=== PATIENT | male | born 1985 | race American Indian/Alaskan Native ===

== ENCOUNTER 2022-01-24 12:34 | Emergency (ER) | payer SELFPAY ==
--- NOTE | 2022-01-24 16:36 | Emergency Department Report ---
- General Chief complaint: Rectal Pain Stated complaint: PAIN LUMP IN RECTAL AREA Time Seen by Provider: 01/24/22 15:10 Source: patient Mode of arrival: Ambulatory Limitations: No Limitations - History of Present Illness Initial comments: 36-year-old black male with a past medical history of HIV presents to the emergency department for evaluation of rectal pain. He states that he has had pain to his rectal area for over a week, talk to his primary care provider who started him on antibiotics, but he states that he has not had any improvement. He denies fever and states that he has still been able to have a bowel movement and urinate without any difficulty. MD complaint: abscess/boil -: Gradual, days(s) (6-7) Location: genitals Severity scale (0 -10): 10 Quality: aching Consistency: constant Worsens with: movement Associated symptoms: denies other symptoms Treatments Prior to Arrival: antibiotic - Related Data Previous Rx's Medication Instructions Recorded Last Taken Type Acetaminophen/Codeine [Tylenol 1 tab PO Q6H PRN #12 tab 01/24/22 Unknown Rx /Codeine # 3 tab] Clindamycin [Clindamycin CAP] 300 mg PO Q8H 10 Days #30 cap 01/24/22 Unknown Rx Naproxen 500 mg PO BID 7 Days #14 tab 01/24/22 Unknown Rx Allergies Allergy/AdvReac Type Severity Reaction Status Date / Time No Known Allergies Allergy Verified 01/25/22 15:01 Abscess Boil HPI - HPI Chief Complaint: Rectal Pain Stated Complaint: PAIN LUMP IN RECTAL AREA Time Seen by Provider: 01/24/22 15:10 Duration: 1 Week Location: Perianal Severity: Severe History: Yes Pain, Yes Purulent Drainage (States that he has some purulent drainage from his rectal area yesterday), No Fever, No Numbness, No Foreign Body, No Previous History, No Insect Bite Home Medications: Previous Rx's Medication Instructions Recorded Last Taken Type Acetaminophen/Codeine [Tylenol 1 tab PO Q6H PRN #12 tab 01/24/22 Unknown Rx /Codeine # 3 tab] Clindamycin [Clindamycin CAP] 300 mg PO Q8H 10 Days #30 cap 01/24/22 Unknown Rx Naproxen 500 mg PO BID 7 Days #14 tab 01/24/22 Unknown Rx Allergies/Adverse Reactions: Allergies Allergy/AdvReac Type Severity Reaction Status Date / Time No Known Allergies Allergy Verified 01/25/22 15:01 ED Review of Systems ROS: Stated complaint: PAIN LUMP IN RECTAL AREA Other details as noted in HPI Comment: All other systems reviewed and negative Constitutional: denies: chills, fever, malaise, weakness Respiratory: denies: shortness of breath Gastrointestinal: denies: abdominal pain, nausea, vomiting Genitourinary: denies: urgency, dysuria, frequency, hematuria Musculoskeletal: denies: back pain Neurological: denies: headache, weakness ED Past Medical Hx - Past Medical History Hx HIV: Yes - Surgical History Past Surgical History?: No - Social History Smoking Status: Former Smoker Substance Use Type: Alcohol - Medications Home Medications: Home Medications Medication Instructions Recorded Confirmed Last Taken Type Acetaminophen/Codeine [Tylenol 1 tab PO Q6H PRN #12 tab 01/24/22 Unknown Rx /Codeine # 3 tab] Clindamycin [Clindamycin CAP] 300 mg PO Q8H 10 Days #30 cap 01/24/22 Unknown Rx Naproxen 500 mg PO BID 7 Days #14 tab 01/24/22 Unknown Rx ED Physical Exam - General Limitations: No Limitations General appearance: alert, in no apparent distress - Head Head exam: Present: atraumatic, normocephalic - Eye Eye exam: Present: normal appearance. Absent: scleral icterus, conjunctival injection, periorbital swelling, periorbital tenderness - Neck Neck exam: Present: normal inspection, full ROM. Absent: tenderness, lymphadenopathy - Respiratory Respiratory exam: Present: normal lung sounds bilaterally. Absent: respiratory distress, wheezes, rales, rhonchi, stridor, chest wall tenderness - Cardiovascular Cardiovascular Exam: Present: regular rate, normal heart sounds - GI/Abdominal GI/Abdominal exam: Present: soft, normal bowel sounds. Absent: distended, tenderness, guarding, rebound, rigid - Rectal Rectal exam: Present: tenderness. Absent: normal inspection (Abscess directed.. Abscess noted to be tender to any touch, fluctuant, with minimal erythema noted.), hemorrhoids - Extremities Exam Extremities exam: Present: normal inspection, normal capillary refill - Back Exam Back exam: Present: normal inspection. Absent: vertebral tenderness - Neurological Exam Neurological exam: Present: alert, oriented X3 - Psychiatric Psychiatric exam: Present: normal affect, normal mood - Skin Skin exam: Present: warm, dry, intact, normal color ED Course Vital Signs 01/24/22 01/24/22 12:51 16:57 Temperature 98.4 F 98.4 F Pulse Rate 96 H 78 Respiratory 18 20 Rate Blood Pressure 174/105 128/74 [Left] O2 Sat by Pulse 99 97 Oximetry - I & D Perineum Type of Procedure: Simple Blade Size: 11 (Rectal area) I & D Procedure: betadine prep Progress: Anestisized with 6 cc of lidocaine without epi. Patient noted to have copious amounts of purulent drainage from area. Patient tolerated well. ED Medical Decision Making - Medical Decision Making 36-year-old black male with a past medical history of HIV presents to the emergency department for evaluation of rectal pain. He states that he has had pain to his rectal area for over a week, talk to his primary care provider who started him on antibiotics, but he states that he has not had any improvement. He denies fever and states that he has still been able to have a bowel movement and urinate without any difficulty. Patient noted to have rectal abscess. Incision and drainage performed, patient tolerated well. Patient will be discharged home on 10-day course of clindamycin and given strict return precautions if he develops increased pain, fever, or inability to have a bowel movement. He is advised to follow-up with his primary care provider or infectious disease doctor for further evaluation and management. He verbalizes understanding of and agreement with plan of care. Critical care attestation.: If time is entered above; I have spent that time in minutes in the direct care of this critically ill patient, excluding procedure time. ED Disposition Clinical Impression: Abscess, perineum Disposition: 01 HOME / SELF CARE / HOMELESS Is pt being admited?: No Does the pt Need Aspirin: No Condition: Stable Instructions: Skin Abscess, [id number], Anorectal Abscess Additional Instructions: Take medications as prescribed. Follow-up with your primary care provider for further evaluation and management. Follow-up with general surgery for further evaluation. Return to the emergency department as needed. Prescriptions: Clindamycin [Clindamycin CAP] 300 mg PO Q8H 10 Days #30 cap Naproxen 500 mg PO BID 7 Days #14 tab Acetaminophen/Codeine [Tylenol /Codeine # 3 tab] 1 tab PO Q6H PRN #12 tab PRN Reason: Pain , Severe (7-10) Referrals: CARBUCCIA,DONTRELL, MD [Staff Physician] - 3-5 Days MARIO SWEET DO [Staff Physician] - 3-5 Days Time of Disposition: 16:36
[2022-01-24 16:58] VITALS: BP 128/74
== END 2022-01-24 16:57 | disposition home or self-care (01) ==
LOC: ED 12:34
DX: L02.215 Cutaneous abscess of perineum (principal); Z87.891 Personal history of nicotine dependence; Z79.82 Long term (current) use of aspirin; Z79.899 Other long term (current) drug therapy
CPT/HCPCS: 99282

== ENCOUNTER 2022-01-25 14:24 | Inpatient (IN) | payer SELFPAY ==
[2022-01-25] MEDS ORDERED: KETOROLAC 30 MG/1 ML INJ IV ONE (21:35)
[2022-01-25 21:51] LABS: Basophils # (Auto) 0.1 K/mm3 (0.0-0.1); Basophils % (Auto) 0.8 % (0.0-1.8); Eosinophils # (Auto) 0.2 K/mm3 (0.0-0.4); Eosinophils % (Auto) 2.7 % (0.0-4.3); Hematocrit 45.5 % (35.5-45.6); Hemoglobin 15.8 gm/dl (11.8-15.2); Lymphocytes # (Auto) 2.7 K/mm3 (1.2-5.4); Lymphocytes % (Auto) 34.4 % (13.4-35.0); Mean Corpuscular HGB Conc 35 % (32-34); Mean Corpuscular Volume 88 fl (84-94); Monocytes # (Auto) 0.5 K/mm3 (0.0-0.8); Monocytes % (Auto) 6.2 % (0.0-7.3); Platelet Count 198 K/mm3 (140-440); Red Cell Distribution Width 14.1 % (13.2-15.2)
[2022-01-25 22:10] LABS: Alanine Aminotransferase 37 units/L (7-56); Albumin 4.5 g/dL (3.9-5); BUN/Creatinine Ratio 13; Blood Urea Nitrogen 13 mg/dL (9-20); Calcium 8.8 mg/dL (8.4-10.2); Hemolysis Index 35
[2022-01-25 23:43] LABS: Mucus,Urine FEW /HPF
[2022-01-26 00:13] LABS: Bilirubin,Urine Negative (Negative); Blood,Urine Negative (Negative); Color,Urine Straw (Yellow)
--- NOTE | 2022-01-26 03:38 | Cat Scan Report ---
CT abdomen pelvis w con INDICATION / CLINICAL INFORMATION: yanira-rectal abscess 100ml of [id number]. TECHNIQUE: Axial CT images were obtained through the abdomen and pelvis after 100 cc of Omnipaque [address] scans at this location are performed using CT dose reduction for ALARA by means of automated exposure control. COMPARISON: None available. FINDINGS: Initial images were obtained at 10:26 PM, though the inferior perineum was excluded. Subseq uent imaging of the inferior perineum was requested and performed at 11:56 PM. Examination is somewha t limited due to delayed phase of contrast. LOWER CHEST: No significant abnormality LIVER: No significant abnormality GALLBLADDER/BILIARY TREE: No significant abnormality PANCREAS: No significant abnormality SPLEEN: No significant abnormality ADRENALS: No significant abnormality RIGHT KIDNEY / URETER: No significant abnormality LEFT KIDNEY / URETER: No significant abnormality URINARY BLADDER: No significant abnormality REPRODUCTIVE ORGANS: No significant abnormality STOMACH / BOWEL: Small bowel is normal in caliber. The colon is unremarkable. The appendix is normal in caliber. LYMPH NODES: No significant adenopathy. VASCULATURE: No significant abnormality. OTHER: There is mild soft tissue inflammation of the right gluteal fold with mild asymmetric soft tis imani thickening and suggestion of a 1.9 x 1.2 cm area of focal fluid and gas in the right perianal sof t tissues (series 2 image 94). SKELETAL SYSTEM: No acute osseous findings. IMPRESSION: 1. Mild inflammation of the right gluteal fold and right perianal soft tissues with suggestion of 1.9 cm perianal abscess. Signer Name: Robinson Shaffer MD Signed: 01/26/2022 3:34 AM Workstation Name: [id number]
--- NOTE | 2022-01-26 04:19 | Emergency Department Report ---
ED General Adult HPI - General Chief complaint: Skin/Abscess/Foreign Body Stated complaint: INTERNAL ABSCESS Source: patient Mode of arrival: Ambulatory Limitations: No Limitations - History of Present Illness Initial comments: Patient is a 36-year-old -Burmese male with a history of HIV who presents to the ED with complaint of acute onset persistent rectal pain and rig ht gluteal pain due to mild erythematous maculopapular rash for the last 1 week. Patient states that the pain is constant and persistent especially worse with bowel movement. Patient states that he was initially evaluated in this ED about 3 days ago and had I&D procedure performed on the gluteal cleft abscess. Patient states that he has been taking oral antibiotics at home but that in the last 2 days he has not been able to have a bowel movement because of worsening rectal pain. Patient denies dizziness, syncope, fever, chills, nausea and vomiting, fever, chills, dysuria, urinary frequency and urgency, urinary or bowel incontinence and abdominal pain. MD Complaint: Persistent rectal pain due to rectal abscess -: Gradual, week(s) (1) Location: buttocks Radiation: non-radiation Severity scale (0 -10): 10 Quality: aching, sharp Consistency: constant Improves with: none Worsens with: movement, other (bowel movement) Associated Symptoms: denies other symptoms, rash (Swollen, painful perirectal area and right gluteal cleft). denies: confusion, chest pain, cough, diaphoresis, fever/chills, headaches, loss of appetite, malaise, nausea/ vomiting, shortness of breath, syncope, weakness, other Treatments Prior to Arrival: NSAID - Related Data Previous Rx's Medication Instructions Recorded Last Taken Type Acetaminophen/Codeine [Tylenol 1 tab PO Q6H PRN #12 tab 01/24/22 Unknown Rx /Codeine # 3 tab] Clindamycin [Clindamycin CAP] 300 mg PO Q8H 10 Days #30 cap 01/24/22 Unknown Rx Naproxen 500 mg PO BID 7 Days #14 tab 01/24/22 Unknown Rx Allergies Allergy/AdvReac Type Severity Reaction Status Date / Time No Known Allergies Allergy Verified 01/25/22 15:01 ED Review of Systems ROS: Stated complaint: INTERNAL ABSCESS Other details as noted in HPI Constitutional: denies: chills, fever Eyes: denies: eye pain, eye discharge, vision change ENT: denies: ear pain, throat pain Respiratory: denies: cough, shortness of breath, wheezing Cardiovascular: denies: chest pain, palpitations Endocrine: no symptoms reported Gastrointestinal: denies: abdominal pain, nausea, diarrhea Genitourinary: denies: urgency, dysuria Musculoskeletal: denies: back pain, joint swelling, arthralgia Skin: rash (Swollen, painful perirectal rash). denies: lesions, change in color, change in hair/nails, pruritus Neurological: denies: headache, weakness, paresthesias Psychiatric: denies: anxiety, depression Hematological/Lymphatic: denies: easy bleeding, easy bruising ED Past Medical Hx - Past Medical History Previous Medical History?: Yes Hx HIV: Yes - Social History Smoking Status: Former Smoker Substance Use Type: Alcohol - Medications Home Medications: Home Medications Medication Instructions Recorded Confirmed Last Taken Type Acetaminophen/Codeine [Tylenol 1 tab PO Q6H PRN #12 tab 01/24/22 Unknown Rx /Codeine # 3 tab] Clindamycin [Clindamycin CAP] 300 mg PO Q8H 10 Days #30 cap 01/24/22 Unknown Rx Naproxen 500 mg PO BID 7 Days #14 tab 01/24/22 Unknown Rx ED Physical Exam - General Limitations: No Limitations General appearance: alert, in no apparent distress - Head Head exam: Present: atraumatic, normocephalic, normal inspection - Eye Eye exam: Present: normal appearance, PERRL, EOMI Pupils: Present: normal accommodation - ENT ENT exam: Present: normal exam, normal orophraynx, mucous membranes moist, TM's normal bilaterally, normal external ear exam - Neck Neck exam: Present: normal inspection, full ROM - Respiratory Respiratory exam: Present: normal lung sounds bilaterally. Absent: respiratory distress, wheezes, rales, rhonchi, stridor, chest wall tenderness, accessory muscle use, decreased breath sounds, prolonged expiratory - Cardiovascular Cardiovascular Exam: Present: regular rate, normal rhythm, normal heart sounds. Absent: systolic murmur, diastolic murmur, rubs, gallop - GI/Abdominal GI/Abdominal exam: Present: soft, normal bowel sounds. 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 Absent: tenderness - Back Exam Back exam: Present: normal inspection, full ROM. Absent: tenderness, CVA tenderness (R), CVA tenderness (L), muscle spasm, paraspinal tenderness, vertebral tenderness - Neurological Exam Neurological exam: Present: alert, oriented X3, CN II-XII intact, normal gait, reflexes normal - Psychiatric Psychiatric exam: Present: normal affect, normal mood - Skin Skin exam: Present: warm, dry, intact, normal color, rash (Swelling, mild erythematous, tender, fluctuant perirectal mass), erythema ED Course Vital Signs 01/25/22 01/25/22 14:58 21:57 Temperature 98.6 F Pulse Rate 81 Respiratory 20 20 Rate Blood Pressure 139/80 [Right] O2 Sat by Pulse 99 Oximetry - Reevaluation(s) Reevaluation #1: 01/26/22 04:27 I paged and discussed the patient case with the general surgeon on-call, Dr. Kev Steinberg who advised that the patient be kept n.p.o., and that the patient be treated with IV antibiotics and IV fluids as well as pain medications and that the hospitalist physician admit the patient and he shall consult the patient upon admission. ED Medical Decision Making - Lab Data Result diagrams: 01/25/22 21:38 01/25/22 21:38 - Radiology Data Radiology results: report reviewed, image reviewed The abdomen pelvis CT scan with IV contrast showed mild soft tissue inflammation of the right gluteal fold with mild asymmetric soft tissue thickening and suggestion of a 1.9 x 1.2 cm area of focal fluid and gas in the right perianal soft tissue. These findings are suspicious for mild inflammation of the right gluteal fold and right perianal soft tissue with suggestion of 1.9 cm perianal abscess. - Medical Decision Making This is a 36-year-old -Burmese male with a history of HIV who presents to the ED with complaint of acute onset persistent rectal pain and right gluteal pain due to mild erythematous maculopapular rash for the last 1 week. Patient states that the pain is constant and persistent especially worse with bowel movement. Patient states that he was initially evaluated in this ED about 3 days ago and had I&D procedure performed on the gluteal cleft abscess. Patient states that he has been taking oral antibiotics at home but that in the last 2 days he has not been able to have a bowel movement because of worsening rectal pain. In the ED, patient is alert and oriented x3 and is not in any distress but appears been significant pain. Patient was treated for pain in the ED and also given IV antibiotics clindamycin 900 mg IV x1. All lab test results were reviewed and are all nonactionable. Abdomen pelvis CT scan with IV contrast showed mild inflammation of the right gluteal fold and right perianal soft tissue with suggestion of 1.9 cm perianal abscess. Patient's case was discussed with the ED attending physician Dr. Price who advised that the patient case to be presented to the general surgeon on-call. I therefore paged and discussed the patient's case with Dr. Kev Steinberg the general surgeon on-call who advised the patient be maintained on n.p.o., given antibiotics and pain control as well as IV fluids and that the hospitalist physician on-call Dr. Dejesus to admit the patient. Dr. Idris Garzon to evaluate the patient upon admission. I therefore paged and discussed the patient case with Dr. Dejesus the hospitalist physician on- call who admitted the patient to the hospital. - Differential Diagnosis Perirectal abscess; cellulitis of buttock; hemorrhoids; cutaneous abscess Critical care attestation.: If time is entered above; I have spent that time in minutes in the direct care of this critically ill patient, excluding procedure time. ED Disposition Clinical Impression: Perianal abscess, Cellulitis and abscess of buttock Disposition: 02 [facility] Is pt being admited?: Yes Does the pt Need Aspirin: No Condition: Stable Instructions: Cellulitis, Adult, [id number] Referrals: DONTRELL WEATHERS MD [Primary Care Provider] - 3-5 Days Time of Disposition: 04:22 Print Language: FIJIAN
[2022-01-26] MEDS ORDERED: PIPERACILLIN/TAZOBACTAM 3.375 3.375 GM/50 ML BAG IV ONE (04:37)
[2022-01-26] MEDS ORDERED: MORPHINE 4 MG/1 ML INJ IV ONE (04:37)
[2022-01-26] MEDS ORDERED: SODIUM CHLORIDE 0.9% 1000 ML 1,000 ML IV ONE (04:37)
[2022-01-26] MEDS ORDERED: ONDANSETRON 4 MG/2 ML INJ IV ONE (04:37)
[2022-01-26] MEDS ORDERED: METOCLOPRAMIDE 10 MG/2 ML INJ IV PRN (04:39)
[2022-01-26] MEDS ORDERED: ACETAMINOPHEN 325 MG TAB PO PRN ×2 (04:39→15:24)
[2022-01-26] MEDS ORDERED: MORPHINE 4 MG/1 ML INJ IV PRN ×2 (04:39→15:24)
[2022-01-26] MEDS ORDERED: ONDANSETRON 4 MG/2 ML INJ IV PRN ×3 (04:39→15:24)
[2022-01-26] MEDS ORDERED: SODIUM CHLORIDE 0.9% 1000 ML 1,000 ML IV SCH (05:00)
[2022-01-26] MEDS ORDERED: DIBUCAINE 1% OINT 28 GM PR PRN (06:46)
--- NOTE | 2022-01-26 07:57 | History and Physical Report ---
History of Present Illness Date of examination: 01/26/22 Date of admission: 01/26/2022 Chief complaint: Abscess anal area for the last 1 week History of present illness: 36-year-old morbidly obese male patient with significant past medical history of HIV, not on any medications presented to the emergency room with acute persistent rectal pain in the right gluteal pain and some swelling of 1 week duration patient reports that pain on defecation patient denies any fever chills or rigors denies any trauma, Never had similar symptoms in the past Patient was evaluated in the ED about 3 4 days ago and had incision and drainage procedure performed on the gluteal abscess and was placed on oral antibiotics However continues to have excruciating anal pain. He gives past history of anal fissure. Initial work-up in the ED CBC BMP is within normal limits CT abdomen and pelvis with contrast showed mild inflammation of the right gluteal fold and right perianal soft tissue with suggestion of 1.9 cm perianal abscess. In ER patient received a dose of Zosyn and clindamycin. General surgeon Dr. Angulo was consulted. Patient also has history of HIV not on any medications at this point Past History Past Medical History: other (HIV). denies: diabetes, hypertension Past Surgical History: denies: No surgical history Social history: alcohol abuse (Occasional). denies: smoking (Former smoker ), prescription drug abuse Family history: no significant family history Medications and Allergies Allergies Allergy/AdvReac Type Severity Reaction Status Date / Time No Known Allergies Allergy Verified 01/25/22 15:01 Home Medications Medication Instructions Recorded Confirmed Last Taken Type Acetaminophen/Codeine [Tylenol 1 tab PO Q6H PRN #12 tab 01/24/22 Unknown Rx /Codeine # 3 tab] Clindamycin [Clindamycin CAP] 300 mg PO Q8H 10 Days #30 cap 01/24/22 Unknown Rx Naproxen 500 mg PO BID 7 Days #14 tab 01/24/22 Unknown Rx Active Meds: Active Medications Acetaminophen (Acetaminophen 325 Mg Tab) 650 mg PO Q4H PRN PRN Reason: Pain MILD(1-3)/Fever >100.5/GRADY Dibucaine (Dibucaine 1% Oint 28 Gm) 1 applic IN Q6H PRN PRN Reason: Pain, Mild (1-3) Sodium Chloride (Nacl 0.9% 1000 Ml) 1,000 mls @ 125 mls/hr IV DIRECT JOSHUA Metoclopramide HCl (Metoclopramide 10 Mg/2 Ml Inj) 10 mg IV Q6H PRN PRN Reason: Nausea And Vomiting Morphine Sulfate (Morphine 4 Mg/1 Ml Inj) 4 mg IV Q4H PRN PRN Reason: Pain , Severe (7-10) Ondansetron HCl (Ondansetron 4 Mg/2 Ml Inj) 4 mg IV Q8H PRN PRN Reason: Nausea And Vomiting Sodium Chloride (Sodium Chloride 0.9% 10 Ml Flush Syringe) 10 ml IV PRN PRN PRN Reason: LINE FLUSH Review of Systems Constitutional: fatigue, weakness, no weight loss, no weight gain, no fever, no chills Ears, nose, mouth and throat: no nasal congestion, no nasal discharge Cardiovascular: no chest pain, no orthopnea, no palpitations Respiratory: no cough, no shortness of breath Gastrointestinal: constipation, other (Anal pain/abscess), no abdominal pain, no nausea, no vomiting Genitourinary Male: no dysuria, no hematuria, no flank pain Rectal: pain (Rectal pain), other (Perianal abscess, gluteal fold abscess) Musculoskeletal: no myalgias, no arthritis Integumentary: no rash, no lesions Neurological: no tingling, no seizures, no syncope Psychiatric: no anxiety, no depression Endocrine: no cold intolerance, no heat intolerance Hematologic/Lymphatic: no easy bruising, no easy bleeding Allergic/Immunologic: no urticaria, no allergic rhinitis Exam - Constitutional Vitals: Temp Pulse Resp BP Pulse Ox 98.6 F 81 20 139/80 99 01/25/22 14:58 01/25/22 14:58 01/25/22 21:57 01/25/22 14:58 01/25/22 14:58 General appearance: Present: mild distress, well-nourished, obese (Morbidly obese) - EENT Eyes: Present: PERRL, EOM intact - Neck Neck: Present: supple, normal ROM - Respiratory Respiratory effort: normal Respiratory: bilateral: diminished, negative: rales, rhonchi, wheezing - Cardiovascular Rhythm: regular Heart Sounds: Present: S1 & S2 - Extremities Extremities: no ischemia, No edema - Abdominal General gastrointestinal: Present: soft, non-tender, non-distended, normal bowel sounds - Rectal Rectal Exam: deferred (Patient refused) - Integumentary Integumentary: Present: clear, warm - Musculoskeletal Musculoskeletal: strength equal bilaterally - Psychiatric Psychiatric: appropriate mood/affect, cooperative - Neurologic Neurologic: CNII-XII intact, moves all extremities Results - Labs CBC & Chem 7: 01/25/22 21:38 01/25/22 21:38 Labs: Abnormal lab results 01/25/22 Range/Units 21:38 RBC 5.20 H (3.65-5.03) M/mm3 Hgb 15.8 H (11.8-15.2) gm/dl MCHC 35 H (32-34) % Assessment and Plan - Patient Problems (1) Perianal abscess Current Visit: No Status: Acute Plan to address problem: IV antibiotics Vanco and Zosyn Pain medications, supportive care N.p.o. status, IV fluids Surgery already consulted (2) Morbid obesity with BMI of 40.0-44.9, adult Current Visit: No Status: Acute Plan to address problem: Counseling done patient strongly advised diet modification, exercise as tolerated and weight reduction when medically stable Patient also may need outpatient pulmonary evaluation to rule out obstructive sleep apnea, CPAP BiPAP at night as needed May need to see bariatric surgeon as outpatient once patient is medically stable for weight reduction evaluation and weight reduction education (3) History of HIV infection Current Visit: No Status: Acute Plan to address problem: Currently not on medications ID evaluation inpatient versus outpatient Close monitoring (4) DVT prophylaxis Current Visit: No Status: Acute Plan to address problem: Subcu Lovenox (5) Full code status Current Visit: No Status: Acute Plan to address problem: We will closely monitor the patient and adjust the management as needed Follow surgery evaluation and recommendations We will place n.p.o. status Surgeon recommended I&D Will monitor the patient postoperatively Consults and recommendations noted and appreciated Plan of care reviewed with the patient and his nurse I spent total 62 minutes coordinating this admission
[2022-01-26] MEDS ORDERED: MORPHINE 2 MG/1 ML INJ IV PRN (09:00)
[2022-01-26] MEDS ORDERED: NALOXONE 0.4 MG/1 ML INJ IV PRN (09:00)
[2022-01-26] MEDS ORDERED: BUPIVACAINE-EPINEPHRINE/PF 0.5%-1:200,000 (30 ML) VIAL INFILTRATI ONE ×2 (09:56→13:52)
[2022-01-26] MEDS ORDERED: LIDOCAINE (1%) 10 MG/1 ML VIAL 20 ML MDV ONE (09:56)
[2022-01-26] MEDS ORDERED: ONDANSETRON 4 MG/2 ML INJ ONE (10:06)
[2022-01-26] MEDS ORDERED: ROCURONIUM 50 MG/5 ML INJ IV ONE (10:06)
[2022-01-26] MEDS ORDERED: dexAMETHasone 20 MG/5 ML VIAL ONE (10:06)
[2022-01-26] MEDS ORDERED: SUCCINYLCHOLINE CHLORIDE 200 MG/10 ML INJ MDV ONE (10:06)
[2022-01-26] MEDS ORDERED: HYDROmorphone 1 MG/1 ML INJ ONE (10:06)
[2022-01-26] MEDS ORDERED: LIDOCAINE MPF (2%) 20 MG/1 ML VIAL 5 ML ONE (10:06)
[2022-01-26] MEDS ORDERED: propofoL 200 MG/20 ML VIAL IV ONE (10:07)
[2022-01-26] MEDS ORDERED: ePHEDrine SULFATE 50 MG/1 ML INJ ONE (10:07)
[2022-01-26] MEDS ORDERED: SODIUM HYPOCHLORITE, DAKIN'S FULL STRENGTH (0.5%) 473 ML TOPICAL SOLN ONE (10:31)
[2022-01-26] MEDS: FAMOTIDINE 20 MG/2 ML INJ IV SCH ×2 (11:20→21:50)
[2022-01-26] MEDS: PIPERACIL/TAZOBACTA 4.5/NS 100 4.5 GM/100 ML VIAL IV SCH ×2 (11:21→17:46)
[2022-01-26] MEDS ORDERED: HYDROGEN PEROXIDE 118 ML SOLUTION ONE (13:51)
[2022-01-26] MEDS ORDERED: HYDROGEN PEROXIDE 118 ML SOLUTION IRRIGATION ONE (13:51)
[2022-01-26] MEDS ORDERED: SODIUM CHLORIDE 0.9% IRR 1,500 ML BOTTLE IR ONE (13:52)
[2022-01-26] MEDS ORDERED: LIDOCAINE (1%) 10 MG/1 ML VIAL 20 ML MDV INFILTRATI ONE (13:54)
--- NOTE | 2022-01-26 14:20 | Consultation ---
History of Present Illness Consult date: 01/26/22 - History of present illness History of present illness: Patient is a 36-year-old -Martiniquais male with a history of HIV who presents to the ED with complaint of acute onset persistent rectal pain and right gluteal pain due to mild erythematous maculopapular rash for the last 1 week. Patient states that the pain is constant and persistent especially worse with bowel movement. Patient states that he was initially evaluated in this ED about 3 days ago and had I&D procedure performed on the gluteal cleft abscess. Patient states that he has been taking oral antibiotics at home but that in the last 2 days he has not been able to have a bowel movement because of worsening rectal pain. He has been giving himself enemas for the constipation with no improvement. He denies any knowledge of injury to rectum and anal canal. He ad a fissure in the past. There is not FH of crc, ovca, ut ca or breast ca. Patient denies dizziness, syncope, fever, chills, nausea and vomiting, fever, chills, dysuria, urinary frequency and urgency, urinary or bowel incontinence and abdominal pain. Medications and Allergies Allergies Allergy/AdvReac Type Severity Reaction Status Date / Time No Known Allergies Allergy Verified 01/25/22 15:01 Home Medications Medication Instructions Recorded Confirmed Last Taken Type Acetaminophen/Codeine [Tylenol 1 tab PO Q6H PRN #12 tab 01/24/22 Unknown Rx /Codeine # 3 tab] Clindamycin [Clindamycin CAP] 300 mg PO Q8H 10 Days #30 cap 01/24/22 Unknown Rx Naproxen 500 mg PO BID 7 Days #14 tab 01/24/22 Unknown Rx Exam Vital Signs Temp Pulse Resp BP Pulse Ox 98.6 F 81 20 139/80 99 01/25/22 14:58 01/25/22 14:58 01/25/22 14:58 01/25/22 14:58 01/25/22 14:58 - General physical appearance Positive: well developed, moderate distress - Neck Positive: no masses, no bruits, trachea midline - Cardiovascular Rhythm: regular - Extremities Extremities: no ischemia, No edema - Abdomen Abdomen: Present: soft, bowel sounds normal. Absent: tender Hernia: none - Rectum Rectum: other (deferred to EUA) Results - Labs 01/25/22 21:38 01/25/22 21:38 Abnormal lab results 01/25/22 Range/Units 21:38 RBC 5.20 H (3.65-5.03) M/mm3 Hgb 15.8 H (11.8-15.2) gm/dl MCHC 35 H (32-34) % Diabetes panel 01/25/22 Range/Units 21:38 Sodium 140 (137-145) mmol/L Potassium 3.8 (3.6-5.0) mmol/L Chloride 103.9 (98-107) mmol/L Carbon Dioxide 25 (22-30) mmol/L BUN 13 (9-20) mg/dL Creatinine 1.0 (0.8-1.3) mg/dL Glucose 93 (75-100) mg/dL Calcium 8.8 (8.4-10.2) mg/dL AST 24 (5-40) units/L ALT 37 (7-56) units/L Alkaline Phosphatase 87 (35-129) units/L Total Protein 6.9 (6.3-8.2) g/dL Albumin 4.5 (3.9-5) g/dL Calcium panel 01/25/22 Range/Units 21:38 Calcium 8.8 (8.4-10.2) mg/dL Albumin 4.5 (3.9-5) g/dL Pituitary panel 01/25/22 Range/Units 21:38 Sodium 140 (137-145) mmol/L Potassium 3.8 (3.6-5.0) mmol/L Chloride 103.9 (98-107) mmol/L Carbon Dioxide 25 (22-30) mmol/L BUN 13 (9-20) mg/dL Creatinine 1.0 (0.8-1.3) mg/dL Glucose 93 (75-100) mg/dL Calcium 8.8 (8.4-10.2) mg/dL Adrenal panel 01/25/22 Range/Units 21:38 Sodium 140 (137-145) mmol/L Potassium 3.8 (3.6-5.0) mmol/L Chloride 103.9 (98-107) mmol/L Carbon Dioxide 25 (22-30) mmol/L BUN 13 (9-20) mg/dL Creatinine 1.0 (0.8-1.3) mg/dL Glucose 93 (75-100) mg/dL Calcium 8.8 (8.4-10.2) mg/dL Total Bilirubin 0.30 (0.1-1.2) mg/dL AST 24 (5-40) units/L ALT 37 (7-56) units/L Alkaline Phosphatase 87 (35-129) units/L Total Protein 6.9 (6.3-8.2) g/dL Albumin 4.5 (3.9-5) g/dL Assessment and Plan Pt with perianal pain and failed to improve with attempted I and D in the ED. Pt will go to the OR for EUA. He will likely need I and d of perianal abscess. He will have biopsy of any neoplasms discovered. Pt agrees to proceed.
[2022-01-26] MEDS ORDERED: SUGAMMADEX SODIUM 200 MG/2 ML VIAL IV ONE (14:22)
--- NOTE | 2022-01-26 14:30 | Operative Report ---
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 Angulo Play Leader: Anesthesia: General endotracheal anesthesia Estimated blood loss: 10 cc Specimen: None Findings: Patient is taken to the OR and under general endotracheal endotracheal anesthesia timeouts are completed consents on the chart. Patient is carefully rolled into a prone position. Pressure points are padded. The buttocks are taped apart. The perianal area is prepped with Betadine and draped in a sterile fashion. The endoscope was inserted into the anus after digital exam failed to show any tumors. Examination of all 4 quadrants is undertaken. An area of fluctuance is noted on the right side anteriorly. A fistulous track with drainage is noted she has internal to the external sphincter. A perianal area of fluctuance and swelling is noted an 11 blade is used to incise the perianal abscess. A #1 silk suture is passed with a hemostat through the I&D point to the fistula entry point in the rectum it is then tied to itself as a seton stitch. No other pathology is noted. 20 cc of half percent Marcaine and 1% lidocaine with epi is used to do an intersphincteric block and field block to the area. A Gelfoam gauze is placed as packing and the procedure is ended.
--- NOTE | 2022-01-26 16:01 | Post Anesthesia Evaluation ---
- Post Anesthesia Evaluation Patient Participated: Yes Airway Patent: Yes Stable Respiratory Function: Yes Nausea/Vomiting: No Temp > 96.8F: Yes Pain Manageable: Yes Adequeate Hydration: Yes Anesthesia Complications: No Block Receding Appropriately: Not Applicable Patient on Ventilator: No
[2022-01-26] MEDS ORDERED: MINERAL OIL 30 ML ORAL LIQD PO ONE (16:21)
[2022-01-26 16:33] VITALS: BP 146/99
[2022-01-26] MEDS: MORPHINE 2 MG/1 ML INJ IV PRN (17:48)
[2022-01-26] MEDS: PHENOL 1.4% 177 ML BOTTLE MM PRN (18:33)
[2022-01-26] MEDS: DOCUSATE SODIUM 100 MG CAP PO SCH (20:50)
[2022-01-27] MEDS: PIPERACIL/TAZOBACTA 4.5/NS 100 4.5 GM/100 ML VIAL IV SCH ×2 (02:02→10:07)
[2022-01-27] MEDS: MORPHINE 2 MG/1 ML INJ IV PRN ×3 (02:02→11:44)
[2022-01-27] MEDS: MAGNESIUM HYDROXIDE (MOM) ORAL LIQD UDC PO PRN ×3 (02:15→13:47)
[2022-01-27] MEDS: DOCUSATE SODIUM 100 MG CAP PO SCH ×2 (08:01→13:47)
[2022-01-27] MEDS: PHENOL 1.4% 177 ML BOTTLE MM PRN (08:02)
[2022-01-27] MEDS ORDERED: FAMOTIDINE 20 MG TAB PO SCH (10:00)
--- NOTE | 2022-01-27 14:47 | Discharge Summary ---
Providers - Providers Date of Admission: 01/27/22 09:44 Date of discharge: 01/27/22 Attending physician: PRAVEEN CALDERON 01/26/22 04:26 Consult to Physician [CONS] Stat Comment: To consult on patient upon admission Consulting Provider: OFELIA ANGULO Physician Instructions: IV Abx, IV fluids, Hospitalist admission Reason For Exam: Kelly-rectal abscess Primary care physician: DONTRELL WEATHERS Hospitalization Reason for admission: Abscess anal area Condition: Stable Pertinent studies: CT abdomen and pelvis Procedures: Perianal abscess status post incision and drainage Hospital course: (1) Perianal abscess Current Visit: No Status: Acute Plan to address problem: IV antibiotics Vanco and Zosyn Pain medications, supportive care N.p.o. status, IV fluids Surgery already consulted (2) Morbid obesity with BMI of 40.0-44.9, adult Current Visit: No Status: Acute Plan to address problem: Counseling done patient strongly advised diet modification, exercise as tolerated and weight reduction when medically stable Patient also may need outpatient pulmonary evaluation to rule out obstructive sleep apnea, CPAP BiPAP at night as needed May need to see bariatric surgeon as outpatient once patient is medically stable for weight reduction evaluation and weight reduction education (3) History of HIV infection Current Visit: No Status: Acute Plan to address problem: Currently not on medications ID evaluation inpatient versus outpatient Close monitoring (4) DVT prophylaxis Current Visit: No Status: Acute Plan to address problem: Subcu Lovenox (5) Full code status Current Visit: No Status: Acute Plan to address problem: We will closely monitor the patient and adjust the management as needed Follow surgery evaluation and recommendations We will place n.p.o. status Surgeon recommended I&D Final Discharge Diagnosis (Prints w/discharge instructions): Perianal abscess s/p incision and drainage. Morbid obesity BMI 40.9. History of HIV infection Time spent for discharge: 40 minutes - Discharge Diagnoses (1) Perianal abscess Status: Inactive (2) Morbid obesity with BMI of 40.0-44.9, adult Status: Acute (3) History of HIV infection Status: Acute (4) DVT prophylaxis Status: Acute (5) Full code status Status: Acute Core Measure Documentation - Palliative Care Palliative Care/ Comfort Measures: Not Applicable - Core Measures Any of the following diagnoses?: none Exam - Constitutional Vitals: Temp Pulse Resp BP Pulse Ox 97.7 F 92 H 14 146/99 98 08/09/22 16:30 01/26/22 16:30 01/26/22 16:30 01/26/22 16:30 01/27/22 09:45 Plan Activity: advance as tolerated Diet: regular Additional Instructions: Take Colace 3 times a day. Take mineral oil 20-30 mL 3 times a day. Sitz bath 3 times a day for 10 days. If you have worsening symptoms contact MD or go to the nearest emergency room as needed. Advised to follow primary care physician in 5 to 7 days. Advised to follow surgeon Dr. Angulo in 10 days. Advised diet modification, exercise as tolerated and weight reduction when you are medically stable Follow up with: DONTRELL WEATHERS MD [Primary Care Provider] - 3-5 Days OFELIA ANGULO MD [Staff Physician] - 10 Days Prescriptions: Docusate Sodium [Colace CAP] 100 mg PO TID #30 capsule Mineral Oil 30 ml PO TID 30 Days #1 bottle Dibucaine 1% [Nupercainal] 1 applic RI Q6H PRN #1 tube PRN Reason: Hemorrhoids Famotidine [Pepcid] 20 mg PO BID #20 tablet Acetaminophen/Codeine [Tylenol /Codeine # 3 tab] 1 tab PO BID PRN #12 tab PRN Reason: Pain , Severe (7-10)
[2022-01-27] MEDS ORDERED: oxyCODONE /ACETAMINOPHEN 5-325MG TAB PO SCH (16:00)
== END 2022-01-27 16:29 | disposition home or self-care (01) | DRG 348 ==
LOC: ED 14:24 → 3A 01-26 15:20 → OBSVTOIN 01-27 09:44
PROVIDERS: ADMIT Internal Medicine; ATTEND Internal Medicine
PROC: 0D9Q0ZZ Drainage of Anus, Open Approach (ICD-10-PCS; principal; 2022-01-26)
DX: K61.1 Rectal abscess (principal); L03.317 Cellulitis of buttock; Z68.41 Body mass index [BMI] 40.0-44.9, adult; K61.0 Anal abscess; E66.01 Morbid (severe) obesity due to excess calories; Z87.891 Personal history of nicotine dependence
CPT/HCPCS: 36415; 74177; 80053; 81001; 85025; G0378; J3490; J7502; J0330; J1100; J1170; J1885; J2270; J2405; J2543; J2704; J7030; Q9967

== ENCOUNTER 2022-02-20 01:29 | Emergency (ER) | payer SELFPAY ==
[2022-02-20 02:01] VITALS: BP 146/92
--- NOTE | 2022-02-22 16:46 | Electrocardiograph Report ---
[facility] Test Date: 2022-02-20 Test Time: 01:37:10 Pat Name: HELENE FLORES Department: Room: Gender: M Bilingual Instructor: ANGELITO : 1985 Requested By: LIBRADO CHANDLER Order Number: [id number] Reading MD: Dmitriy Ruffin Measurements Intervals [place] Rate: 86 P: 45 WI: 169 QRS: 25 QRSD: 72 T: 10 QT: 366 QTc: 437 Interpretive Statements Sinus rhythm No previous ECG available for comparison Electronically Signed On 02-22-2022 16:46:31 EDT by Dmitriy Ruffin
== END 2022-02-20 09:55 | disposition left against medical advice (07) ==
LOC: ED 01:29
DX: R07.89 Other chest pain (principal); Z53.21 Procedure and treatment not carried out due to patient leaving prior to being seen by health care provider
CPT/HCPCS: 93005

== ENCOUNTER 2022-03-10 12:47 | Inpatient (IN) | payer SELFPAY ==
[2022-03-10] MEDS ORDERED: ONDANSETRON 4 MG/2 ML INJ IV ONE (15:07)
[2022-03-10] MEDS ORDERED: MORPHINE 4 MG/1 ML INJ IV ONE (15:07)
[2022-03-10 15:57] LABS: Alanine Aminotransferase 29 units/L (7-56); Albumin 4.6 g/dL (3.9-5); BUN/Creatinine Ratio 9; Blood Urea Nitrogen 10 mg/dL (9-20); Calcium 9.5 mg/dL (8.4-10.2); Hemolysis Index 33
[2022-03-10 16:12] LABS: Basophils % (Auto) 0.5 % (0.0-1.8); Eosinophils # (Auto) 0.1 K/mm3 (0.0-0.4); Eosinophils % (Auto) 1.8 % (0.0-4.3); Hematocrit 47.2 % (35.5-45.6); Hemoglobin 16.1 gm/dl (11.8-15.2); Lymphocytes # (Auto) 2.1 K/mm3 (1.2-5.4); Lymphocytes % (Auto) 31.3 % (13.4-35.0); Mean Corpuscular HGB Conc 34 % (32-34); Mean Corpuscular Volume 88 fl (84-94); Monocytes # (Auto) 0.4 K/mm3 (0.0-0.8); Monocytes % (Auto) 6.8 % (0.0-7.3); Platelet Count 192 K/mm3 (140-440); Red Blood Count 5.39 M/mm3 (3.65-5.03); Red Cell Distribution Width 13.9 % (13.2-15.2)
--- NOTE | 2022-03-10 16:15 | Cat Scan Report ---
CT ABDOMEN AND PELVIS WITHOUT CONTRAST INDICATION / CLINICAL INFORMATION: ABCESS. TECHNIQUE: Axial CT images were obtained through the abdomen and pelvis without IV contrast. All CT scans at [facility] location are performed using CT dose reduction for ALARA by means of automated exposure control. COMPARISON: CT abdomen and pelvis 01/25/2022 FINDINGS: LOWER CHEST: No significant abnormality. LIVER: No significant abnormality. GALLBLADDER: No significant abnormality. BILE DUCTS: No significant abnormality. PANCREAS: No significant abnormality. SPLEEN: No significant abnormality. ADRENALS: No significant abnormality. RIGHT KIDNEY and URETER: No significant abnormality. LEFT KIDNEY and URETER: No significant abnormality. STOMACH and SMALL BOWEL: No significant abnormality. COLON: No significant abnormality. APPENDIX: No significant abnormality. PERITONEUM: No free fluid. No free air. No fluid collection. LYMPH NODES: No significant adenopathy. AORTA and ARTERIES: No significant abnormality. IVC and VEINS: No significant abnormality. URINARY BLADDER: No significant abnormality. REPRODUCTIVE ORGANS: No significant abnormality. ADDITIONAL FINDINGS: The previously seen right perianal abscess is no longer definitively seen on thi s examination. SKELETAL SYSTEM: No significant abnormality. IMPRESSION: 1. No definite abscess or acute process is identified within the abdomen or pelvis on noncontrast exa mination. Signer Name: Catherine Arboleda MD Signed: 03/10/2022 4:11 PM Workstation Name: [email or web address]
[2022-03-10 16:19] LABS: Color,Urine Straw (Yellow)
[2022-03-10 16:27] LABS: Mucus,Urine FEW /HPF; WBC,Urine < 1.0 /HPF (0.0-6.0)
[2022-03-10] MEDS ORDERED: MAGNESIUM CITRATE 300 ML ORAL LIQD PO ONE (16:32)
--- NOTE | 2022-03-10 16:37 | Emergency Department Report ---
ED General Adult HPI - General Chief complaint: Rectal Pain Stated complaint: PAIN SWELLING DRAINAGE ABCESS Time Seen by Provider: 03/10/22 15:11 Source: patient Mode of arrival: Ambulatory Limitations: No Limitations - History of Present Illness Initial comments: Patient presents to the emergency department from his surgeon's office for evaluation of the issue of rectal abscess. Patient states he has had issues with this previously and had a procedure done not too long ago to try to help resolve the issue. Patient states today he was evaluated and was told to come to the emergency department to have further testing done and possible surgical procedure. -: Gradual Severity scale (0 -10): 0 Consistency: constant Improves with: none Worsens with: none Associated Symptoms: denies other symptoms Treatments Prior to Arrival: none - Related Data Home Medications Medication Instructions Recorded Confirmed Last Taken Bictegrav/Emtricit/Tenofov Ala 50 mg PO DAILY 01/26/22 01/26/22 Unknown [Biktarvy 50-200-25 mg Tablet] Previous Rx's Medication Instructions Recorded Last Taken Type Clindamycin [Clindamycin CAP] 300 mg PO Q8H 10 Days #30 cap 01/24/22 Unknown Rx Naproxen 500 mg PO BID 7 Days #14 tab 01/24/22 Unknown Rx Dibucaine 1% [Nupercainal] 1 applic CO Q6H PRN #1 tube 01/27/22 Unknown Rx Docusate Sodium [Colace CAP] 100 mg PO TID #30 capsule 01/27/22 Unknown Rx Famotidine [Pepcid] 20 mg PO BID #20 tablet 01/27/22 Unknown Rx Mineral Oil 30 ml PO TID 30 Days #1 bottle 01/27/22 Unknown Rx oxyCODONE /ACETAMINOPHEN [Percocet 1 tab PO BID PRN #12 01/27/22 Unknown Rx 5/325] Allergies Allergy/AdvReac Type Severity Reaction Status Date / Time No Known Allergies Allergy Verified 03/10/22 14:32 ED Review of Systems ROS: Stated complaint: PAIN SWELLING DRAINAGE ABCESS Other details as noted in HPI Comment: All other systems reviewed and negative Constitutional: denies: chills, fever Eyes: denies: eye pain, eye discharge, vision change ENT: denies: ear pain, throat pain Respiratory: denies: cough, shortness of breath, wheezing Cardiovascular: denies: chest pain, palpitations Endocrine: no symptoms reported Gastrointestinal: denies: abdominal pain, nausea, diarrhea Genitourinary: denies: urgency, dysuria Musculoskeletal: denies: back pain, joint swelling, arthralgia Skin: denies: rash, lesions Neurological: denies: headache, weakness, paresthesias Psychiatric: denies: anxiety, depression Hematological/Lymphatic: denies: easy bleeding, easy bruising ED Past Medical Hx - Past Medical History Hx HIV: Yes - Surgical History Additional Surgical History: abscess anal fistula - Social History Smoking Status: Never Smoker - Medications Home Medications: Home Medications Medication Instructions Recorded Confirmed Last Taken Type Clindamycin [Clindamycin CAP] 300 mg PO Q8H 10 Days #30 cap 01/24/22 Unknown Rx Naproxen 500 mg PO BID 7 Days #14 tab 01/24/22 Unknown Rx Bictegrav/Emtricit/Tenofov Ala 50 mg PO DAILY 01/26/22 01/26/22 Unknown History [Biktarvy 50-200-25 mg Tablet] Dibucaine 1% [Nupercainal] 1 applic CO Q6H PRN #1 tube 01/27/22 Unknown Rx Docusate Sodium [Colace CAP] 100 mg PO TID #30 capsule 01/27/22 Unknown Rx Famotidine [Pepcid] 20 mg PO BID #20 tablet 01/27/22 Unknown Rx Mineral Oil 30 ml PO TID 30 Days #1 bottle 01/27/22 Unknown Rx oxyCODONE /ACETAMINOPHEN [Percocet 1 tab PO BID PRN #12 01/27/22 Unknown Rx 5/325] ED Physical Exam - General Limitations: No Limitations General appearance: alert, in no apparent distress - Head Head exam: Present: atraumatic, normocephalic - Eye Eye exam: Present: normal appearance, PERRL, EOMI - ENT ENT exam: Present: mucous membranes moist - Neck Neck exam: Present: normal inspection - Respiratory Respiratory exam: Present: normal lung sounds bilaterally. Absent: respiratory distress - Cardiovascular Cardiovascular Exam: Present: regular rate, normal rhythm. Absent: systolic murmur, diastolic murmur, rubs, gallop - GI/Abdominal GI/Abdominal exam: Present: soft, normal bowel sounds. Absent: distended, tenderness - Rectal Rectal exam: Present: deferred, other ( Rectal abscess on exam) - Extremities Exam Extremities exam: Present: normal inspection - Back Exam Back exam: Present: normal inspection - Neurological Exam Neurological exam: Present: alert, oriented X3, CN II-XII intact. Absent: motor sensory deficit - Psychiatric Psychiatric exam: Present: normal affect, normal mood - Skin Skin exam: Present: warm, dry, intact, normal color. Absent: rash ED Course Vital Signs 03/10/22 03/10/22 03/10/22 13:32 14:29 14:54 Temperature 98.4 F Pulse Rate 75 65 Respiratory 16 Rate Blood Pressure 137/87 129/82 [Right] O2 Sat by Pulse 100 99 99 Oximetry 03/10/22 16:30 Temperature Pulse Rate 78 Respiratory Rate Blood Pressure 132/86 [Right] O2 Sat by Pulse 99 Oximetry ED Medical Decision Making - Lab Data Result diagrams: 03/10/22 15:04 03/10/22 15:04 Lab Results 03/10/22 03/10/22 03/10/22 Range/Units 15:04 15:04 15:16 WBC 6.6 (4.5-11.0) K/mm3 RBC 5.39 H (3.65-5.03) M/mm3 Hgb 16.1 H (11.8-15.2) gm/dl Hct 47.2 H (35.5-45.6) % MCV 88 (84-94) fl MCH 30 (28-32) pg MCHC 34 (32-34) % RDW 13.9 (13.2-15.2) % Plt Count 192 (140-440) K/mm3 Lymph % (Auto) 31.3 (13.4-35.0) % [place] % (Auto) 6.8 (0.0-7.3) % Eos % (Auto) 1.8 (0.0-4.3) % Baso % (Auto) 0.5 (0.0-1.8) % Lymph # (Auto) 2.1 (1.2-5.4) K/mm3 [place] # (Auto) 0.4 (0.0-0.8) K/mm3 Eos # (Auto) 0.1 (0.0-0.4) K/mm3 Baso # (Auto) 0.0 (0.0-0.1) K/mm3 Seg Neutrophils % 59.6 (40.0-70.0) % Seg Neutrophils # 3.9 (1.8-7.7) K/mm3 Sodium 139 (137-145) mmol/L Potassium 4.1 (3.6-5.0) mmol/L Chloride 104.5 (98-107) mmol/L Carbon Dioxide 26 (22-30) mmol/L Anion Gap 13 mmol/L BUN 10 (9-20) mg/dL Creatinine 1.1 (0.8-1.3) mg/dL Estimated GFR > 60 ml/min BUN/Creatinine Ratio 9 % Glucose 85 (75-100) mg/dL Calcium 9.5 (8.4-10.2) mg/dL Total Bilirubin 0.50 (0.1-1.2) mg/dL AST 20 (5-40) units/L ALT 29 (7-56) units/L Alkaline Phosphatase 82 (35-129) units/L Total Protein 7.1 (6.3-8.2) g/dL Albumin 4.6 (3.9-5) g/dL Albumin/Globulin Ratio 1.8 % Urine Color Straw (Yellow) Urine Turbidity Clear (Clear) Specific [place] (Man) 1.025 (1.003-1.030) Ur Protein (Man) Negative (Negative) mg/dL Ur Ketones (Man) Negative (Negative) Ur Nitrite (Man) Negative (Negative) Urine Bilirubin (Man) Negative (Negative) Leukocyte Esterase (Man) Negative (Negative) Urine WBC (Auto) < 1.0 (0.0-6.0) /HPF Urine RBC (Auto) 4.0 (0.0-6.0) /HPF Urine RBC (Manual) Negative (Negative) Urine Mucus Few /HPF - Radiology Data Radiology results: report reviewed - Medical Decision Making Discussed the patient with Dr. Angulo antibiotics discussed but since the patient is not febrile, tachycardic, and without white count it was suggested that antibiotics were not needed at this time Critical care attestation.: If time is entered above; I have spent that time in minutes in the direct care of this critically ill patient, excluding procedure time. ED Disposition Clinical Impression: Rectal abscess Disposition: 09 ADMITTED INPATIENT Is pt being admited?: Yes Does the pt Need Aspirin: No Condition: Fair
[2022-03-10] MEDS ORDERED: ACETAMINOPHEN 325 MG TAB PO PRN ×2 (16:40→18:14)
[2022-03-10] MEDS ORDERED: ALBUTEROL 2.5 MG/3 ML NEBU IH PRN (16:40)
[2022-03-10] MEDS ORDERED: ONDANSETRON 4 MG/2 ML INJ IV PRN (16:40)
[2022-03-10] MEDS ORDERED: oxyCODONE /ACETAMINOPHEN 5-325MG TAB PO PRN (16:40)
--- NOTE | 2022-03-10 16:40 | History and Physical Report ---
History of Present Illness Chief complaint: I have pain and swelling History of present illness: 37 YO Male with Obesity, HIV, GERD presents to ED for evaluation. Patient reports "I have pain, swelling around my rectum". Patient states that he has experienced rectal pain, swelling, redness, with foul-smelling drainage and discharge over the past 1 week with worsening symptoms over the same timeframe. Patient also acknowledges rectal drainage and pain with defecation. Patient was seen and evaluated in his surgeon's office and instructed to seek further care. Patient transported via private vehicle to [facility] for further care and evaluation of the aforementioned symptoms. Patient seen and evaluated in the emergency department. All lab and imaging studies reviewed. Patient found to have a fluctuant perirectal mass with purulent drainage. The clinical findings are consistent with perirectal cellulitis with abscess with drainage. Surgery team consulted in ED. patient pending surgical intervention. Patient denies fever, chills, chest pain, palpitation, adductive cough, skin rash, recent contact, known exposure to COVID-19. Prior admission on 1821 reviewed. All medication listed at time of admission has been reconciled. Advanced care planning conducted in ED. Past History Past Medical History: GERD, HIV/AIDS Past Surgical History: Other (Rectal surgery) Social history: single. denies: smoking, alcohol abuse, prescription drug abuse Family history: hypertension Medications and Allergies Allergies Allergy/AdvReac Type Severity Reaction Status Date / Time No Known Allergies Allergy Verified 03/10/22 14:32 Home Medications Medication Instructions Recorded Confirmed Last Taken Type Clindamycin [Clindamycin CAP] 300 mg PO Q8H 10 Days #30 cap 01/24/22 Unknown Rx Naproxen 500 mg PO BID 7 Days #14 tab 01/24/22 Unknown Rx Bictegrav/Emtricit/Tenofov Ala 50 mg PO DAILY 01/26/22 01/26/22 Unknown History [Biktarvy 50-200-25 mg Tablet] Dibucaine 1% [Nupercainal] 1 applic MA Q6H PRN #1 tube 01/27/22 Unknown Rx Docusate Sodium [Colace CAP] 100 mg PO TID #30 capsule 01/27/22 Unknown Rx Famotidine [Pepcid] 20 mg PO BID #20 tablet 01/27/22 Unknown Rx Mineral Oil 30 ml PO TID 30 Days #1 bottle 01/27/22 Unknown Rx oxyCODONE /ACETAMINOPHEN [Percocet 1 tab PO BID PRN #12 01/27/22 Unknown Rx 5/325] Review of Systems Constitutional: no weight loss, no weight gain, no fever, no chills Ears, nose, mouth and throat: no ear pain, no tinnitis, no nasal discharge, no sinus pressure Cardiovascular: no chest pain, no orthopnea, no syncope, no lightheadedness Respiratory: no cough, no cough with sputum, no hemoptysis Gastrointestinal: no abdominal pain, no vomiting, no diarrhea, no constipation, no hematemesis Genitourinary Male: no hematuria, no flank pain, no discharge, no urinary frequency, no urinary hesitancy Rectal: pain, discharge, other Musculoskeletal: no neck stiffness, no neck pain, no arm numbness/tingling, no shooting leg pain Integumentary: no pruritis, no sores, no wounds, no boils Neurological: no head injury, no paralysis, no weakness Psychiatric: no anxiety, no memory loss, no sleep disturbances, no insomnia, no hypersomnia, no change in libido, no suicidal ideation, no disorientation Endocrine: no cold intolerance, no polyphagia, no polydipsia, no polyuria, no excessive sweating, no flushing, no weight change Hematologic/Lymphatic: no easy bruising, no easy bleeding Allergic/Immunologic: no allergic rhinitis Exam - Constitutional Vitals: Temp Pulse Resp BP Pulse Ox 98.4 F 78 16 132/86 99 03/10/22 13:32 03/10/22 16:30 03/10/22 13:32 03/10/22 16:30 03/10/22 16:30 General appearance: Present: mild distress, obese - EENT Eyes: Present: PERRL ENT: hearing intact, clear oral mucosa - Neck Neck: Present: supple, normal ROM - Respiratory Respiratory effort: normal Respiratory: bilateral: CTA - Cardiovascular Heart Sounds: Present: S1 & S2. Absent: rub, click - Extremities Extremities: pulses symmetrical, No edema Peripheral Pulses: within normal limits - Abdominal General gastrointestinal: Present: soft, non-tender, non-distended, normal bowel sounds Male genitourinary: Present: normal - Rectal Rectal Exam: tenderness, mass, other (Purulent discharge, perirectal erythema) - Integumentary Integumentary: Present: clear, warm, dry - Musculoskeletal Musculoskeletal: gait normal, strength equal bilaterally - Psychiatric Psychiatric: appropriate mood/affect, intact judgment & insight - Neurologic Neurologic: CNII-XII intact, moves all extremities Results - Labs CBC & Chem 7: 03/10/22 15:04 03/10/22 15:04 Labs: Abnormal lab results 03/10/22 Range/Units 15:04 RBC 5.39 H (3.65-5.03) M/mm3 Hgb 16.1 H (11.8-15.2) gm/dl Hct 47.2 H (35.5-45.6) % Assessment and Plan - Patient Problems (1) Perirectal cellulitis Current Visit: Yes Status: Acute Plan to address problem: CBC, IV antibiotic therapy, supportive care, pain control, serial physical exam, CT scan abdomen pelvis, surgery team consulted. (2) Kelly-rectal abscess Current Visit: Yes Status: Acute Plan to address problem: Surgery team consulted, supportive care, serial physical exam, wound care. (3) HIV infection Current Visit: Yes Status: Acute Qualifiers: HIV symptom status: unspecified Qualified Code(s): B20 - Human immunodeficiency virus [HIV] disease Plan to address problem: Continue antiretroviral therapy. Outpatient infectious disease service follow- up. (4) Obesity hypoventilation syndrome Current Visit: Yes Status: Acute Plan to address problem: Balanced diet, increase physical activity discharge outpatient pulmonary follow- up for sleep study. Noninvasive positive pressure ventilation as clinically indicated. (5) Morbid obesity with BMI of 40.0-44.9, adult Current Visit: No Status: Acute Plan to address problem: Balanced diet, weight reduction, outpatient bariatric surgery follow-up. (6) DVT prophylaxis Current Visit: No Status: Acute Plan to address problem: SCD to bilateral lower extremities while in bed (7) Advance care planning Current Visit: Yes Status: Acute Plan to address problem: Disease education done, care plan discussed, diagnoses discussed, prognosis discussed, patient is full code. Patient knowledges understanding and agreement with care plan, +30 minutes. (8) Preventative health care Current Visit: Yes Status: Acute Plan to address problem: Patient counseled regarding weight reduction, increase physical activity discharge, follow-up with primary care physician for all age and risk factor appropriate screening test. Outpatient infectious disease follow-up. +30 minutes.
[2022-03-10 17:21] LABS: INR 0.91 (0.87-1.13)
[2022-03-10 17:22] LABS: Partial Thromboplastin Time 31.5 Sec. (24.2-36.6)
[2022-03-10] MEDS: DOCUSATE SODIUM 100 MG CAP PO SCH (20:11)
[2022-03-10] MEDS: HYDROmorphone 0.5 MG/0.5 ML INJ IV PRN (20:12)
[2022-03-10] MEDS: MINERAL OIL 30 ML ORAL LIQD PO SCH (20:12)
[2022-03-10] MEDS ORDERED: POLYETHYLENE GLYCOL 3350 17 GM POWDER PO PRN (21:18)
[2022-03-10] MEDS: FAMOTIDINE 20 MG TAB PO SCH (22:29)
[2022-03-10] MEDS: NAPROXEN 500 MG TAB PO SCH (22:29)
[2022-03-11 06:01] LABS: Basophils % (Auto) 0.7 % (0.0-1.8); Eosinophils # (Auto) 0.2 K/mm3 (0.0-0.4); Eosinophils % (Auto) 2.3 % (0.0-4.3); Hemoglobin 16.1 gm/dl (11.8-15.2); Lymphocytes # (Auto) 2.4 K/mm3 (1.2-5.4); Lymphocytes % (Auto) 36.2 % (13.4-35.0); Mean Corpuscular HGB Conc 35 % (32-34); Mean Corpuscular Volume 86 fl (84-94); Monocytes # (Auto) 0.5 K/mm3 (0.0-0.8); Monocytes % (Auto) 7.9 % (0.0-7.3); Platelet Count 178 K/mm3 (140-440); Red Blood Count 5.34 M/mm3 (3.65-5.03); Red Cell Distribution Width 13.7 % (13.2-15.2)
[2022-03-11 06:27] LABS: BUN/Creatinine Ratio 9; Blood Urea Nitrogen 10 mg/dL (9-20); Hemolysis Index 6
[2022-03-11] MEDS: DOCUSATE SODIUM 100 MG CAP PO SCH ×2 (09:19→16:41)
[2022-03-11] MEDS: MINERAL OIL 30 ML ORAL LIQD PO SCH ×2 (09:19→16:41)
[2022-03-11] MEDS: HYDROmorphone 0.5 MG/0.5 ML INJ IV PRN ×3 (09:19→15:48)
[2022-03-11] MEDS ORDERED: EMTRICITABINE 200 MG CAP PO SCH (10:00)
[2022-03-11] MEDS ORDERED: NON-FORMULARY EACH (Bictegrav/Emtricit/Tenofov Ala [Biktarvy 50-200-25 Mg Tablet] 1 EACH T PO SCH (10:00)
[2022-03-11] MEDS ORDERED: DOLUTEGRAVIR 50 MG TAB PO SCH (10:00)
[2022-03-11] MEDS ORDERED: TENOFOVIR 300 MG TAB PO SCH (10:00)
[2022-03-11 11:44] LABS: Chol/HDL Ratio 3.6 %
[2022-03-11] MEDS ORDERED: fentaNYL 100 MCG/2 ML INJ ONE (13:32)
[2022-03-11] MEDS ORDERED: propofoL 200 MG/20 ML VIAL IV ONE (13:32)
[2022-03-11] MEDS ORDERED: ONDANSETRON 4 MG/2 ML INJ ONE (13:32)
[2022-03-11] MEDS ORDERED: MIDAZOLAM 2 MG/2 ML INJ ONE (13:32)
[2022-03-11] MEDS ORDERED: LIDOCAINE PF 100 MG/5 ML (CARDIAC SYRINGE) IV ONE (13:32)
[2022-03-11] MEDS ORDERED: dexAMETHasone 20 MG/5 ML VIAL ONE (13:33)
[2022-03-11] MEDS ORDERED: ROCURONIUM 50 MG/5 ML INJ IV ONE (13:33)
[2022-03-11] MEDS ORDERED: BUPIVACAINE/PF (0.5%) 5 MG/1 ML 30 ML VIAL INFILTRATI ONE ×2 (13:38→14:35)
[2022-03-11] MEDS ORDERED: SODIUM HYPOCHLORITE, DAKIN'S FULL STRENGTH (0.5%) 473 ML TOPICAL SOLN ONE (13:39)
[2022-03-11] MEDS: NIFEdipine XL 30 MG TAB PO SCH ×2 (13:39→16:35)
[2022-03-11] MEDS: LOSARTAN 50 MG TAB PO SCH ×2 (13:40→16:34)
[2022-03-11] MEDS: FAMOTIDINE 20 MG TAB PO SCH (13:40)
[2022-03-11] MEDS: NAPROXEN 500 MG TAB PO SCH (13:43)
[2022-03-11] MEDS ORDERED: LIDOCAINE 1%/EPINEPHRINE 1:100,000 VIAL (20 ML) INFILTRATI ONE ×2 (13:53→14:36)
[2022-03-11] MEDS ORDERED: ONDANSETRON 4 MG/2 ML INJ IV PRN (14:05)
[2022-03-11] MEDS ORDERED: HYDROmorphone 0.5 MG/0.5 ML INJ IV PRN (14:05)
--- NOTE | 2022-03-11 14:06 | Anesthesia Day of Surgery ---
Anesthesia Day of Surgery - Day of Surgery Patient Examined: Yes Patient H&P Reviewed: Yes Patient is NPO: Yes
--- NOTE | 2022-03-11 14:07 | Anesthesia Consultation ---
Anesthesia Consult and Med Hx Date of service: 03/11/22 - Airway Anesthetic Teeth Evaluation: Good ROM Head & Neck: Adequate Mental/Hyoid Distance: Adequate Mallampati Class: Class II Intubation Access Assessment: Good - Pre-Operative Health Status ASA Pre-Surgery Classification: ASA3 Proposed Anesthetic Plan: General - Pulmonary Hx Smoking: Yes (Quit) Hx Sleep Apnea: No - Gastrointestinal Hx Gastroesophageal Reflux Disease: Yes (Rare) - Hematic Hx Sickle Cell Disease: No - Other Systems Hx Cancer: No Hx Obesity: Yes
[2022-03-11] MEDS ORDERED: SODIUM CHLORIDE 0.9% IRR 1,500 ML BOTTLE IR ONE (14:36)
[2022-03-11] MEDS ORDERED: GLYCOPYRROLATE 0.4 MG/2 ML INJ ONE (14:40)
[2022-03-11] MEDS ORDERED: NEOSTIGMINE 10MG/10 ML INJ MDV ONE (14:40)
--- NOTE | 2022-03-11 15:23 | Consultation ---
History of Present Illness Consult date: 03/11/22 - History of present illness History of present illness: 37 yo gentleman with hx of recurring perianal abscess. Pt with known perianal fistula. He is admitted thru the ED with worsening pain and increase purulent discharge. Pt admitted for managgement of symptoms. He was taken to the OR for EUA and a fistulotomy was done. Past History Past Medical History: GERD, HIV/AIDS Past Surgical History: Other (Rectal surgery) Social history: single. denies: smoking, alcohol abuse, prescription drug abuse Family history: hypertension Medications and Allergies Allergies Allergy/AdvReac Type Severity Reaction Status Date / Time No Known Allergies Allergy Verified 03/10/22 14:32 Home Medications Medication Instructions Recorded Confirmed Last Taken Type Bictegrav/Emtricit/Tenofov Ala 50 mg PO DAILY 01/26/22 03/11/22 03/10/22 History [Biktarvy 50-200-25 mg Tablet] Phentermine HCl [Adipex-P] 37.5 mg PO QAM 03/11/22 03/11/22 Unknown History Active Meds: Active Medications Acetaminophen (Acetaminophen 325 Mg Tab) 650 mg PO Q6H PRN PRN Reason: Pain, Mild (1-3) Albuterol (Albuterol 2.5 Mg/3 Ml Nebu) 2.5 mg IH Q4HRT PRN PRN Reason: Shortness Of Breath Docusate Sodium (Docusate Sodium 100 Mg Cap) 100 mg PO TID [facility] Last Admin: 03/11/22 09:19 Dose: 100 mg Dolutegravir Sodium (Dolutegravir 50 Mg Tab) 50 mg PO QDAY [facility] Last Admin: 03/11/22 13:39 Dose: Not Given Emtricitabine (Emtricitabine 200 Mg Cap) 200 mg PO QDAY [facility] Last Admin: 03/11/22 13:40 Dose: Not Given Famotidine (Famotidine 20 Mg Tab) 20 mg PO BID [facility] Last Admin: 03/11/22 13:40 Dose: Not Given Hydromorphone HCl (Hydromorphone 0.5 Mg/0.5 Ml Inj) 0.5 mg IV Q8H PRN PRN Reason: Pain , Severe (7-10) Last Admin: 03/11/22 09:19 Dose: 0.5 mg Hydromorphone HCl (Hydromorphone 0.5 Mg/0.5 Ml Inj) 0.5 mg IV Q10MIN PRN PRN Reason: Pain , Severe (7-10) Hydromorphone HCl (Hydromorphone 0.5 Mg/0.5 Ml Inj) 0.25 mg IV Q10MIN PRN PRN Reason: Pain, Moderate (4-6) Cefazolin Sodium 2 gm/ Sodium (Chloride) 100 mls @ 200 mls/hr IV Q8H [facility]; Protocol Last Admin: 03/11/22 13:30 Dose: 200 mls/hr Losartan Potassium (Losartan 50 Mg Tab) 50 mg PO QDAY [facility] Last Admin: 03/11/22 13:40 Dose: Not Given Mineral Oil (Mineral Oil 30 Ml Oral Liqd) 30 ml PO TID [facility] Last Admin: 03/11/22 09:19 Dose: 30 ml Naproxen (Naproxen 500 Mg Tab) 500 mg PO BID [facility] Last Admin: 03/11/22 13:43 Dose: Not Given Nifedipine (Nifedipine Xl 30 Mg Tab) 30 mg PO QDAY [facility] Last Admin: 03/11/22 13:39 Dose: Not Given Ondansetron HCl (Ondansetron 4 Mg/2 Ml Inj) 4 mg IV Q8H PRN PRN Reason: Nausea And Vomiting Ondansetron HCl (Ondansetron 4 Mg/2 Ml Inj) 4 mg IV ONCE PRN PRN Reason: Nausea And Vomiting Oxycodone/Acetaminophen (Oxycodone /Acetaminophen 5-325mg Tab) 1 tab PO Q6H PRN PRN Reason: Pain, Moderate (4-6) Polyethylene Glycol (Polyethylene Glycol 3350 17 Gm Powder) 17 gm PO TID [facility] Last Admin: 03/10/22 21:20 Dose: 17 gm Polyethylene Glycol (Polyethylene Glycol 3350 17 Gm Powder) 17 gm PO TID PRN PRN Reason: Pre op Sodium Chloride (Sodium Chloride 0.9% 10 Ml Flush Syringe) 10 ml IV BID [facility] Last Admin: 03/11/22 09:20 Dose: 10 ml Sodium Chloride (Sodium Chloride 0.9% 10 Ml Flush Syringe) 10 ml IV PRN PRN PRN Reason: LINE FLUSH Tenofovir Disoproxil Fumarate (Tenofovir 300 Mg Tab) 300 mg PO QDAY [facility] Last Admin: 03/11/22 13:41 Dose: Not Given Exam Vital Signs Temp Pulse Resp BP Pulse Ox 98.4 F 75 16 137/87 100 03/10/22 13:32 03/10/22 13:32 03/10/22 13:32 03/10/22 13:03/10/22 13:32 - General physical appearance Positive: well developed - Eyes Positive: PERRL - Neck Positive: no masses, no bruits, trachea midline - Respiratory Positive: normal expansion - Cardiovascular Rhythm: regular - Extremities Extremities: no ischemia, No edema - Abdomen Abdomen: Present: soft, bowel sounds normal. Absent: distended, masses, rebound, guarding - Neurologic Neurologic: alert and oriented to time, place and person, motor strength and sensation are grossly intact, CN II-XII intact Results - Labs 03/11/22 05:05 03/11/22 05:05 Abnormal lab results 03/10/22 03/11/22 Range/Units 15:04 05:05 RBC 5.39 H 5.34 H (3.65-5.03) M/mm3 Hgb 16.1 H 16.1 H (11.8-15.2) gm/dl Hct 47.2 H 46.0 H (35.5-45.6) % MCHC 35 H (32-34) % Lymph % (Auto) 36.2 H (13.4-35.0) % Monona % (Auto) 7.9 H (0.0-7.3) % Diabetes panel 03/10/22 03/11/22 03/11/22 Range/Units 15:04 05:05 10:46 Sodium 139 140 (137-145) mmol/L Potassium 4.1 3.9 (3.6-5.0) mmol/L Chloride 104.5 102.6 (98-107) mmol/L Carbon Dioxide 26 28 (22-30) mmol/L BUN 10 10 (9-20) mg/dL Creatinine 1.1 1.1 (0.8-1.3) mg/dL Glucose 85 86 (75-100) mg/dL Hemoglobin A1c 5.6 (4-6) % Calcium 9.5 9.0 (8.4-10.2) mg/dL AST 20 (5-40) units/L ALT 29 (7-56) units/L Alkaline Phosphatase 82 (35-129) units/L Total Protein 7.1 (6.3-8.2) g/dL Albumin 4.6 (3.9-5) g/dL Triglycerides (2-149) mg/dL HDL Cholesterol (40-59) mg/dL 03/11/22 Range/Units 10:46 Sodium (137-145) mmol/L Potassium (3.6-5.0) mmol/L Chloride (98-107) mmol/L Carbon Dioxide (22-30) mmol/L BUN (9-20) mg/dL Creatinine (0.8-1.3) mg/dL Glucose (75-100) mg/dL Hemoglobin A1c (4-6) % Calcium (8.4-10.2) mg/dL AST (5-40) units/L ALT (7-56) units/L Alkaline Phosphatase (35-129) units/L Total Protein (6.3-8.2) g/dL Albumin (3.9-5) g/dL Triglycerides 119 (2-149) mg/dL HDL Cholesterol 53 (40-59) mg/dL Calcium panel 03/10/22 03/11/22 Range/Units 15:04 05:05 Calcium 9.5 9.0 (8.4-10.2) mg/dL Albumin 4.6 (3.9-5) g/dL Pituitary panel 03/10/22 03/11/22 Range/Units 15:04 05:05 Sodium 139 140 (137-145) mmol/L Potassium 4.1 3.9 (3.6-5.0) mmol/L Chloride 104.5 102.6 (98-107) mmol/L Carbon Dioxide 26 28 (22-30) mmol/L BUN 10 10 (9-20) mg/dL Creatinine 1.1 1.1 (0.8-1.3) mg/dL Glucose 85 86 (75-100) mg/dL Calcium 9.5 9.0 (8.4-10.2) mg/dL Adrenal panel 03/10/22 03/11/22 Range/Units 15:04 05:05 Sodium 139 140 (137-145) mmol/L Potassium 4.1 3.9 (3.6-5.0) mmol/L Chloride 104.5 102.6 (98-107) mmol/L Carbon Dioxide 26 28 (22-30) mmol/L BUN 10 10 (9-20) mg/dL Creatinine 1.1 1.1 (0.8-1.3) mg/dL Glucose 85 86 (75-100) mg/dL Calcium 9.5 9.0 (8.4-10.2) mg/dL Total Bilirubin 0.50 (0.1-1.2) mg/dL AST 20 (5-40) units/L ALT 29 (7-56) units/L Alkaline Phosphatase 82 (35-129) units/L Total Protein 7.1 (6.3-8.2) g/dL Albumin 4.6 (3.9-5) g/dL Assessment and Plan 37 yo gentleman with hx of recurring perianal abscess. Pt with known perianal fistula. He is admitted thru the ED with worsening pain and increase purulent discharge. Pt admitted for managgement of symptoms. He was taken to the OR for EUA and a fistulotomy was done. Pt is sp EUA and anal fistulotomy he is cleared for discharge, fu with me in 2 weeks.
--- NOTE | 2022-03-11 15:37 | Discharge Summary ---
Providers - Providers Date of Admission: 03/10/22 16:41 Date of discharge: 03/11/22 Attending physician: ALONZO FLORENCE MD 03/11/22 07:55 Consult to Physician [CONS] Routine Comment: Consulting Provider: OFELIA RADFORD Physician Instructions: Reason For Exam: Perirectal abscess with drainage Hospitalization Reason for admission: Perirectal abscess with fistula Condition: Fair Pertinent studies: Reviewed. Procedures: Fistulotomy under anesthesia03/11/2022. Hospital course: Patient is a 37 YO Male with Obesity, HIV, GERD presents to ED for evaluation. Patient reports "I have pain, swelling around my rectum". Patient states that he has experienced rectal pain, swelling, redness, with foul-smelling drainage and discharge over the past 1 week with worsening symptoms over the same timeframe. Patient also acknowledges rectal drainage and pain with defecation. Patient was seen and evaluated in his surgeon's office and instructed to seek further care. Patient transported via private vehicle to [facility] for further care and evaluation of the aforementioned symptoms. Patient seen and evaluated in the emergency department. All lab and imaging studies reviewed. Patient found to have a fluctuant perirectal mass with purulent drainage. The clinical findin gs are consistent with perirectal cellulitis with abscess with drainage. Surgery team consulted in ED. she underwent fistulotomy under anesthesia with general surgery on 03/11/2022. Patient tolerated the procedure well, and he has been cleared for discharge with follow-up with general surgery in approximately 2 weeks. Patient will also be discharged home on nifedipine 30 mg daily for likely longstanding hypertension. Patient expresses understanding. Patient is medically clear for discharge. Disposition: 01 HOME / SELF CARE / HOMELESS Final Discharge Diagnosis (Prints w/discharge instructions): Perirectal abscess with fistula status post fistulotomy, HIV infection (on antiretrovirals), obesity hypoventilation syndrome, morbid obesity Time spent for discharge: 45 min Core Measure Documentation - Palliative Care Palliative Care/ Comfort Measures: Not Applicable - Core Measures Any of the following diagnoses?: none Exam - Constitutional Vitals: Temp Pulse Resp BP Pulse Ox 99.0 F 62 18 148/87 98 03/11/22 12:05 03/11/22 12:05 03/11/22 12:05 03/11/22 12:05 03/11/22 12:05 General appearance: Present: no acute distress, well-nourished, obese - EENT Eyes: Present: PERRL, EOM intact ENT: hearing intact, clear oral mucosa, dentition normal - Neck Neck: Present: supple, normal ROM - Respiratory Respiratory effort: normal Respiratory: bilateral: CTA - Cardiovascular Rhythm: regular Heart Sounds: Present: S1 & S2 - Extremities Extremities: no ischemia, pulses intact, pulses symmetrical, No edema, normal temperature, normal color, Full ROM Peripheral Pulses: within normal limits - Abdominal General gastrointestinal: Present: soft, non-tender, non-distended, normal bowel sounds Male genitourinary: Present: deferred - Rectal Rectal Exam: other (Perirectal abscess with purulent fluid) - Integumentary Integumentary: Present: clear, warm, dry - Musculoskeletal Musculoskeletal: strength equal bilaterally - Psychiatric Psychiatric: appropriate mood/affect, intact judgment & insight, memory intact, cooperative - Neurologic Neurologic: CNII-XII intact, moves all extremities - Allied Health Allied health notes reviewed: nursing Plan Activity: advance as tolerated Diet: regular Additional Instructions: Patient is a 37 YO Male with Obesity, HIV, GERD presents to ED for evaluation. Patient reports "I have pain, swelling around my rectum". Patient states that he has experienced rectal pain, swelling, redness, with foul-smelling drainage and discharge over the past 1 week with worsening symptoms over the same timeframe. Patient also acknowledges rectal drainage and pain with defecation. Patient was seen and evaluated in his surgeon's office and instructed to seek further care. Patient transported via private vehicle to [facility] for further care and evaluation of the aforementioned symptoms. Patient seen and evaluated in the emergency department. All lab and imaging studies reviewed. Patient found to have a fluctuant perirectal mass with purulent drainage. The clinical findings are consistent with perirectal cellulitis with abscess with drainage. Surgery team consulted in ED. she underwent fistulotomy under anesthesia with general surgery on 03/11/2022. Patient tolerated the procedure well, and he has been cleared for discharge with follow-up with general surgery in approximately 2 weeks. Patient will also be discharged home on nifedipine 30 mg daily for likely longstanding hypertension. Patient expresses understanding. Patient is medically clear for discharge. Care Plan Goals: Patient is medically cleared for discharge. Assessment: Patient is a 37 YO Male with Obesity, HIV, GERD presents to ED for evaluation. Patient reports "I have pain, swelling around my rectum". Patient states that he has experienced rectal pain, swelling, redness, with foul-smelling drainage and discharge over the past 1 week with worsening symptoms over the same timeframe. Patient also acknowledges rectal drainage and pain with defecation. Patient was seen and evaluated in his surgeon's office and instructed to seek further care. Patient transported via private vehicle to [facility] for further care and evaluation of the aforementioned symptoms. Patient seen and evaluated in the emergency department. All lab and imaging studies reviewed. Patient found to have a fluctuant perirectal mass with purulent drainage. The clinical findings are consistent with perirectal cellulitis with abscess with drainage. Surgery team consulted in ED. she underwent fistulotomy under anesthesia with general surgery on 03/11/2022. Patient tolerated the procedure well, and he has been cleared for discharge with follow-up with general surgery in approximately 2 weeks. Patient will also be discharged home on nifedipine 30 mg daily for likely longstanding hypertension. Patient expresses understanding. Patient is medically clear for discharge. Follow up with: CARMELINA PHILLIPS [Other] - 7 Days OFELIA RADFORD MD [Staff Physician] - 14 Days Forms: Work/School Release Form Prescriptions: Docusate Sodium [Colace CAP] 100 mg PO TID #30 capsule oxyCODONE /ACETAMINOPHEN [Percocet 5/325 mg] 1 tab PO Q6H PRN #12 tablet PRN Reason: Pain, Moderate (4-6) NIFEdipine XL [Procardia Xl] 30 mg PO QDAY #30 tablet
--- NOTE | 2022-03-11 16:25 | Operative Report ---
Operative Report Operative Report: Procedure date: 03/11/2020. Preop diagnosis: Perianal pain consistent with fistula in anal Postop diagnosis: Perianal pain consistent with fistula in anal Procedure: EUA with fistulotomy Surgeon: Dr. Angulo [employer] Driver:Dr. Sargent Anesthesia: General endotracheal anesthesia Estimated blood loss: 10 cc Specimen: None Findings: Patient is taken to the OR and under general endotracheal endotracheal anesthesia timeouts are completed consents on the chart. Patient is carefully rolled into a prone position. Pressure points are padded. The buttocks are taped apart. The perianal area is prepped with Betadine and draped in a sterile fashion. The anoscope was inserted into the anus after digital exam failed to show any tumors. Examination of all 4 quadrants is undertaken. A perianal area of the fistula and Seton is noted. Electrocautery is used to unroof the soft tissue above the fistula. Cautery is used to ablate the tract. No other pathology is noted. 20 cc of half percent Marcaine and 1% lidocaine with epi is used to do an intersphincteric block and field block to the area. A Surgicel gauze is placed as packing and the procedure is ended.
[2022-03-11 18:42] VITALS: BP 126/59
[2022-03-11] MEDS ORDERED: POLYETHYLENE GLYCOL 3350 17 GM POWDER PO SCH (22:00)
== END 2022-03-11 18:49 | disposition home or self-care (01) | DRG 348 ==
LOC: ED 12:47 → 3A 16:41
PROVIDERS: ADMIT Internal Medicine; ATTEND Student in an Organized Health Care Education/Training Program
PROC: 0D9QXZZ Drainage of Anus, External Approach (ICD-10-PCS; principal; 2022-03-11)
DX: K61.1 Rectal abscess (principal); E66.2 Morbid (severe) obesity with alveolar hypoventilation; Z68.41 Body mass index [BMI] 40.0-44.9, adult; K21.9 Gastro-esophageal reflux disease without esophagitis; Z21 Asymptomatic human immunodeficiency virus [HIV] infection status
CPT/HCPCS: 36415; 74176; 80048; 80053; 80061; 81001; 83036; 85025; 85610; 85730; 86850; 86900; 86901; 96374; 96375; 99285; G0378; J1815; J3490; J0690; J1100; J1170; J2001; J2250; J2270; J2405; J2704; J2710; J3010